=== PATIENT | female | born 1970 | race Caucasian/White ===

== ENCOUNTER 2017-03-12 19:59 | Emergency (ER) | payer BC, OTHER ==
[2017-03-12] MEDS ORDERED: Lidocaine 1% MPF* 2 ML VIAL INJ ONE ×5 (20:10→20:11)
[2017-03-12 20:14] VITALS: BP 156/88
[2017-03-12] MEDS ORDERED: Lidocaine/Epineph/Tetraca SOL* (LET solution) 4 ML BTL TOPICAL ONE (20:20)
--- NOTE | 2017-03-12 20:28 | UC ---
Skin Complaint HPI - HPI Summary HPI Summary: 46 YEAR OLD FEMALE PRESENTS WITH LEFT BIG TOE INGROWN NAIL. - History of Current Complaint Chief Complaint: UCLowerExtremity Time Seen by Provider: 03/12/17 20:18 Stated Complaint: LEFT BIG TOE PAIN Hx Obtained From: Patient Hx Last Menstrual Period: 02/25/17 Onset/Duration: Sudden Onset Skin Exposure Onset/Duration: Hours Ago Onset Severity: Moderate Current Severity: Moderate Pain Scale Used: 0-10 Numeric - 5 Location: Discrete - Allergy/Home Medications Allergies/Adverse Reactions: Allergies Allergy/AdvReac Type Severity Reaction Status Date / Time Morphine AdvReac Intermediate VOMITS Verified 03/12/17 20:14 Acetaminophen [From Vicodin] AdvReac VOMITS Verified 03/12/17 20:14 Azithromycin [From Zithromax] AdvReac VOMITS Verified 03/12/17 20:14 Hydrocodone [From Vicodin] AdvReac VOMITS Verified 03/12/17 20:14 Review of Systems Constitutional: Negative Skin: Other - LEFT BIG TOE INGROWN NAIL Eyes: Negative ENT: Negative Respiratory: Negative Cardiovascular: Negative Gastrointestinal: Negative Genitourinary: Negative Motor: Negative Neurovascular: Negative Musculoskeletal: Negative Neurological: Negative Psychological: Negative All Other Systems Reviewed And Are Negative: Yes PMH/Surg Hx/FS Hx/Imm Hx Previously Healthy: Yes - Surgical History Surgical History: Yes Surgery Procedure, Year, and Place: C SECTION X 3, OVARY AND FALLOPIAN TUBE REMOVED - Family History Known Family History: Positive: None - Social History Alcohol Use: Occasionally Substance Use Type: None Smoking Status (MU): Never Smoked Tobacco Physical Exam Triage Information Reviewed: Yes Vital Signs: Initial Vital Signs Temp 37.4 C 03/12/17 20:05 Pulse 78 03/12/17 20:05 Resp 16 03/12/17 20:05 BP 156/88 03/12/17 20:05 Pulse Ox 78 03/12/17 20:05 Eye Exam: Normal ENT Exam: Normal Dental Exam: Normal Neck exam: Normal Neck: Positive: 1 Respiratory Exam: Normal Cardiovascular Exam: Normal Abdominal Exam: Normal Musculoskeletal Exam: Normal Neurological Exam: Normal Psychological Exam: Normal Skin: Positive: Other - LEFT BIG TOE INGROWN Course/Dx - Course Course Of Treatment: Left big toe ingrown lateral nail removal with partial lateral nail avulsion. Digital lidocaine 1% block. Minimal bleeding with silver nitrate cauterization. Sterile gauze applied - Diagnoses Provider Diagnoses: LEFT BIG TOE INGROWN NAIL Discharge - Discharge Plan Condition: Stable Disposition: HOME Prescriptions: Acetaminop/Codeine 30 MG TAB* [Tylenol/Codeine 30 MG TAB*] 1 tab PO Q8H PRN #6 tab MDD 3 PRN Reason: Pain Cephalexin CAP* [Keflex CAP*] 500 mg PO TID #21 cap Patient Education Materials: Ingrown Nail (ED), Nail Avulsion (ED) Referrals: Deisi Stoner MD [Primary Care Provider] -
[2017-03-12] MEDS ORDERED: Silver Nitrate/Potassium Nitr* 1 EA STICK TOPICAL ONE (20:30)
[2017-03-12] MEDS ORDERED: DOXYcycline CAP(*) 100 MG PO ONE (20:45)
[2017-03-12] MEDS ORDERED: Acetaminop/Codeine 30 MG TAB* 1 TAB (300 MG/30 MG) PO ONE (20:51)
== END 2017-03-12 21:35 | disposition home or self-care (01) ==
LOC: UCCORT 19:59
DX: L60.0 Ingrowing nail (principal); Z88.6 Allergy status to analgesic agent; Z88.1 Allergy status to other antibiotic agents; Z88.5 Allergy status to narcotic agent
CPT/HCPCS: 11730; 87070; 87077; 87186; 87205; 87640; 87641; 99203; A9270-GY; G0463